=== PATIENT | male | born 1970 | race Caucasian/White ===

== ENCOUNTER 2017-06-13 03:50 | Emergency (ER) | payer SELFPAY ==
[~2017-06-13] VITALS: Ht 165.1 cm; Wt 72.6 kg
[2017-06-13 03:59] VITALS: Ht 165.1 cm; Wt 72.6 kg
[2017-06-13 05:33] VITALS: BP 130/72
== END 2017-06-13 05:33 | disposition other institution (70) ==
LOC: ED 03:50
DX: E11.65 Type 2 diabetes mellitus with hyperglycemia (principal); F10.10 Alcohol abuse, uncomplicated; E78.00 Pure hypercholesterolemia, unspecified; Z00.00 Encounter for general adult medical examination without abnormal findings
CPT/HCPCS: 82962

== ENCOUNTER 2017-06-13 03:50 | Emergency (ER) | payer OTHER | END 2017-06-13 05:33 | disposition other institution (70) | LOC: ED 03:50 | DX: Z02.89 Encounter for other administrative examinations (principal) ==